=== PATIENT | male | born 1970 | race African-American/Black ===

== ENCOUNTER 2016-06-06 14:29 | Inpatient (IN) ==
[2016-06-06] MEDS ORDERED: NITROGLYCERIN 2% OINT 1 INCH/GM PACK TOP STA (15:23)
[2016-06-06] MEDS ORDERED: ALUM/MAG/SIMETH/LIDO VISC 1:1 30 ML BOTTLE PO STA (15:23)
[2016-06-06] MEDS ORDERED: ASPIRIN 325 MG TABLET PO STA (15:23)
[2016-06-06] MEDS ORDERED: ONDANSETRON 4 MG/2 ML VIAL IV STA (15:23)
[2016-06-06] MEDS ORDERED: MORPHINE 2 MG/1 ML SYRINGE IV STA (15:23)
[2016-06-06] MEDS ORDERED: hydrALAZINE 20 MG/1 ML VIAL IV STA (15:23)
--- NOTE | 2016-06-06 15:28 | EKG Report ---
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
[2016-06-06 15:31] LABS: Basophils % 0.2 % (0.0-0.8); Eosinophils % 0.2 % (0.00-10.9); Hematocrit 42.3 VOL% (42.0-52.0); Hemoglobin 14.7 GM/DL (14.0-18.0); Immature Granulocytes % 0.2 %; Immature Granulocytes Absolute 0.01 #; Lymphocytes # 0.4 10*3/uL (1.4-4.0); Lymphocytes % 6.4 % (21.2-54.2); Mean Corpuscular HGB Conc 34.8 GM/DL (32-36); Mean Corpuscular Hemoglobin 32 PG (27-34); Mean Corpuscular Volume 90.8 FL (87-102); Mean Platelet Volume 11.1 FL (9.6-12.0); Monocytes # 0.5 10*3/uL (0.11-0.8); Monocytes % 7.8 % (1.7-12.7); Neutrophils # 5.5 10*3/uL (1.4-7.4); Neutrophils % 85.2 % (38.7-73.9); Platelet Count 169 T/CUMM (130-400); Red Blood Count 4.66 MC/CUMM (3.8-5.5); Red Cell Distribution Width 12.9 % (9.3-17.3); White Blood Count 6.4 T/CUMM (4-12)
[2016-06-06] MEDS ORDERED: ONDANSETRON 4 MG/2 ML VIAL ONE (15:38)
[2016-06-06] MEDS ORDERED: NITROGLYCERIN 2% OINT 1 INCH/GM PACK TOP ONE (15:38)
[2016-06-06] MEDS ORDERED: hydrALAZINE 20 MG/1 ML VIAL ONE (15:38)
[2016-06-06 15:39] LABS: D-Dimer 0.9 MG/L FEU; PT Patient Result 10.4 SECS
[2016-06-06] MEDS ORDERED: MORPHINE 2 MG/1 ML SYRINGE ONE (15:39)
[2016-06-06] MEDS ORDERED: ALUM/MAG/SIMETH/LIDO VISC 1:1 30 ML BOTTLE PO ONE (15:39)
[2016-06-06] MEDS ORDERED: ASPIRIN 325 MG TABLET ONE (15:39)
[2016-06-06 15:42] LABS: Albumin 4.2 G/DL (3.4-5.0); Bilirubin,Total 0.6 MG/DL (0.2-1.0); Calcium 9.5 MG/DL (8.5-10.1); Magnesium 2.3 MG/DL (1.8-2.4); Osmolality,Calculated 272.8 MOS/KG (273-304); Total Protein 8.7 G/DL (6.4-8.3)
--- NOTE | 2016-06-06 15:47 | Emergency Department Note ---
Camilo Rosales Brittany, am scribing for, and in the presence of, Steve Strauss MD 15:41. Rica Rosales Charles R, MD, personally performed the services described in this documentation, ascribed by Radha Page in my presence, and it is both accurate and complete [id number] . Arrival - Arrival Chief Complaint: Chest Pain Stated Complaint: HIGH BP/CHEST PAIN ED Nursing Triage Note: Onset of right side CP, elevated BP, headache onset yesterday morning. Pt was seen in ED last night for same but refused being admitted for elevated BP. Mode of Arrival: Ambulatory Limitations: No Limitations Source: Patient Time Seen by Provider: 06/06/16 14:59 - History of Present Illness HPI Narrative: This is a 46 y/o black male,who presents to the ED with c/o URI Sx which started yesterday morning. He was seen here for the same Sx last night. He states he has been vomiting, coughing, and running a fever since yesterday morning. He also complains of CP and dyspnea. He denies a sore throat. Pt has no other complaints/pain in the ED at this time. Pt has a PMHx of HTN. Pt denies a surgical Hx. Pt denies a family medical Hx. Pt denies a social Hx. Onset (ago): day(s) (Started yesterday morning) Consistency: constant Severity: moderate Allergies/Adverse Reactions: Allergies Allergy/AdvReac Type Severity Reaction Status Date / Time No Known Allergies Allergy Unverified 06/05/16 21:24 Home Medications: Home Medications Medication Instructions Recorded Confirmed Type Lisinopril/Hctz 20-25 [Prinzide 1 tablet PO DAILY #30 tablet 05/03/16 06/06/16 Rx 20-25] Metoprolol Tartrate Tab [Lopressor 100 mg PO BID #60 tablet 05/03/16 06/06/16 Rx Tab] Aspirin EC Tab 81 mg PO DAILY 06/06/16 06/06/16 History Review of System - Review of System 12 point system: reviewed and no additional remarkable complaints except as stated - Review of System Constitutional: Present: fever (Low grade fever) Respiratory: Present: cough Cardiovascular: Present: chest pain, other (Dyspnea) Gastrointestinal: Present: vomiting Medical,Surgical,& Family Hx - Medical History Cardio: History of: Hypertension (Non-compliant with meds) - Social History Smoking Status: Unknown if ever smoked Frequency of Alcohol Use: None Type of Drug Use: None Exam Vital Signs: Vital Signs Temperature 100.1 F H 06/06/16 14:51 Pulse Rate 68 06/06/16 14:51 Respiratory Rate 19 06/06/16 14:51 Blood Pressure 183/115 06/06/16 14:51 O2 Sat by Pulse Oximetry 98 06/06/16 14:51 - General General appearance: alert, in no apparent distress - Head Head exam: Present: atraumatic, normocephalic, normal inspection - Eye Eye exam: Present: normal appearance, PERRL, EOMI - ENT ENT exam: Present: normal exam, normal oropharynx, mucous membranes moist - Neck Neck exam: Present: normal inspection, full ROM, trachea midline. Absent: tenderness, thyromegaly - Chest Chest inspection: Present: symmetric chest wall rise, tenderness (Chest wall tenderness). Absent: rash, abscess - Respiratory Respiratory exam: Present: rhonchi (Bilateral rhonchi) - Cardiovascular Cardiovascular exam: Present: regular rate, normal rhythm, normal heart sounds. Absent: murmur, rubs, gallop, clicks, JVD - Abdominal Exam Abdominal exam: Present: soft, normal bowel sounds. Absent: distention, tenderness, guarding, rebound, rigidity - Extremities Exam Extremities exam: Present: normal inspection, full ROM, normal capillary refill. Absent: tenderness, pedal edema, joint swelling, calf tenderness - Back Exam Back exam: Present: normal inspection, full ROM. Absent: tenderness, muscle spasm, rashes - Neurological Exam Neurological exam: Present: alert, oriented X3, CN II-XII intact, normal gait, reflexes normal. Absent: motor sensory deficit - Psychiatric Psychiatric exam: Present: normal affect, normal mood. Absent: depressed, agitated, anxious - Skin Skin exam: Present: warm, dry, intact, normal color. Absent: diaphoresis Course - Consultations Consultation #1: Hospitalist will admit patient Time: 16:14 Results - Labs CBC & BMP: 06/06/16 15:03 06/06/16 15:03 Lab Results: I have reviewed the patients labs - Diagnostic Findings Procedure: Chest x-ray: report reviewed by me (1. The cardiac silhouette is borderlien enlarged. This could be related to the portable technique, and correlation with a chest PA lateral study would be helpful. 2. The interstital markings are slighly prominent at both lower lung zones. This is likely related to the poor inspiratory depth. ) Critical Care Time Critical Care Time: Yes Total Critical Care Time: 60 Disposition Clinical Impression: Atypical chest pain, Chest pain, Malignant hypertensive urgency, Medical non- compliance, Fever Case discussed with: patient, patient's family Disposition: Still a Patient Condition: Guarded Time of Disposition: 16:16
--- NOTE | 2016-06-06 15:59 | XRay Report ---
Referring Physician: Steve Strauss Exam: XR chest 1V portable Date: June 06, 2016 at 3:33 AM Reason: Chest pain Comparison: Chest one view portable June 05, 2016 Findings: The cardiac silhouette is borderline enlarged. The interstitial markings are slightly prominent at both lower lung zones. This is likely related to the poor inspiratory depth and portable technique. No pneumothorax or pleural effusion is identified. No acute osseous process is seen. Impression: 1. The cardiac silhouette is borderline enlarged. This could be related to the portable technique, and correlation with a chest PA lateral study would be helpful. 2. The interstitial markings are slightly prominent at both lower lung zones. This is likely related to the poor inspiratory depth. PROCEDURE INTERPRETED AT [facility] DEPARTMENT OF RADIOLOGY Final Report Signed by: Dr. Shea Rogers
[2016-06-06] MEDS ORDERED: ONDANSETRON 4 MG/2 ML VIAL IV PRN (16:19)
[2016-06-06] MEDS ORDERED: DOCUSATE SODIUM 100 MG CAPSULE PO PRN (16:19)
[2016-06-06] MEDS ORDERED: MORPHINE 2 MG/1 ML SYRINGE IV PRN (16:19)
[2016-06-06] MEDS ORDERED: PENICILLIN G BENZATHINE 1,200,000 UNIT/2 ML SYRINGE IM STA (16:52)
[2016-06-06] MEDS ORDERED: PENICILLIN G BENZATHINE 1,200,000 UNIT/2 ML SYRINGE IM ONE (16:57)
--- NOTE | 2016-06-06 17:55 | Hospitalist History & Physical ---
Assessment and Plan (1) Chest pain Status: Acute Assessment and plan: will r/o ACS,pleuritis,upper resp infection,bronchitis,musculoskeletal origin Plan -telemetry -asa, bblockers, lovenox, will hold ACEI due to RI, -serial cardiac enzymes, lipids, TSH, UDS -tylenol, PPIs -consider stress test in am, will get Echo Current Visit: Yes (2) Strep throat Status: Acute Assessment and plan: Rapid test was positive for GAS. patient received a dose of IM penicillin in the ER -start amoxicillin -Blood cultures Current Visit: Yes (3) HTN (hypertension) Status: Acute Assessment and plan: will treat and monitor closely Current Visit: Yes (4) Acute renal insufficiency Status: Acute Assessment and plan: will hydrate, repeat bmp in am Current Visit: Yes History of Present Illness Chief complaint: chest pain History of present illness: Mr. Julian is a 46 year old male with a history of HTN, whose grandmom had an [place] at the age of 59 presents to the ER with a history of chestpain. Patient was well until yesterday when he was about going to work, when he developed a chest pain. Pain is located in the sternal region, sharp in nature, has been on and off, aggravated by coughing, relieved by staying still. He states an associated nausea, vomiting but denies hemetemeis, melena stools. Pain was non radiating, with no associated palpitations, diaphoresis. He came to the ER yesterday and subsequently left AMA. He returned today due to persistent of symptoms. He denies a history of sore throat but he has had some fever. Upon arrival to the ER, rapid test was positive for GAS, Influenza tests were negative.CXR showed enlarged heart with interstitial markings slightly prominent at both lower lung zones.Labs showed mildly elevated creatinine of 1.4.D dimer was negative, cardiac enzyme was negative. He denies nasal congestion, cold, ear ache or drainage. Home Medications Medication Instructions Recorded Confirmed Type Lisinopril/Hctz 20-25 [Prinzide 1 tablet PO DAILY #30 tablet 05/03/16 06/06/16 Rx 20-25] Metoprolol Tartrate Tab [Lopressor 100 mg PO BID #60 tablet 05/03/16 06/06/16 Rx Tab] Aspirin EC Tab 81 mg PO DAILY 06/06/16 06/06/16 History Allergies Allergy/AdvReac Type Severity Reaction Status Date / Time No Known Allergies Allergy Unverified 06/05/16 21:24 Medical,Surgical,& Family Hx - Medical History Cardio: History of: Hypertension (Non-compliant with meds) - Social History Smoking Status: Unknown if ever smoked Frequency of Alcohol Use: None Type of Drug Use: None Exam - Constitutional Vitals: Period Temp Pulse Resp BP Sys/[place] Pulse Ox Last 24 Hr 68-94 16-24 135-163/85-102 98-99 General appearance: no acute distress - Head Head exam: Present: normal inspection - Eye Eye exam: Present: EOMI - Neck Neck exam: Present: normal inspection - Respiratory Respiratory exam: Present: clear to auscultation bilaterally - Cardiovascular Cardiovascular exam: Present: regular rate and rhythm - GI/Abdominal GI/Abdominal exam: Present: normal bowel sounds - Extremities Exam Extremities exam: Present: normal inspection Results - Labs CBC & BMP: 06/06/16 15:03 06/06/16 15:03 Lab Results: I have reviewed the past 24 hour labs
[2016-06-06] MEDS: ACETAMINOPHEN 325 MG TABLET PO PRN (18:18)
[2016-06-06] MEDS: ENOXAPARIN 40 MG/0.4 ML SYRINGE SUBCUT SCH (18:32)
[2016-06-06] MEDS: SODIUM CHLORIDE 0.45% 1,000 ML IV SCH (18:32)
--- NOTE | 2016-06-06 18:42 | EKG Report ---
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
[2016-06-06 20:18] LABS: Troponin I Only < 0.015 NG/ML (0.00-0.045)
[2016-06-06] MEDS: AMOXICILLIN 500 MG CAPSULE PO SCH (20:53)
[2016-06-06] MEDS: ZALEPLON 5 MG CAPSULE PO PRN (20:53)
[2016-06-06] MEDS ORDERED: METOPROLOL TARTRATE 100 MG TABLET PO SCH (21:00)
--- NOTE | 2016-06-06 22:12 | EKG Report ---
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
[2016-06-07 03:22] LABS: Barbiturates Screen,Urine Negative (Negative); Benzodiazepines Screen,Urine Negative (Negative); Cannabinoid Screen,Urine Negative (Negative); Opiate Screen,Urine Positive (Negative); Phencyclidine Screen,Urine Negative (Negative)
[2016-06-07] MEDS: ACETAMINOPHEN 325 MG TABLET PO PRN ×2 (03:36→20:40)
[2016-06-07 04:53] LABS: Basophils % 0.1 % (0.0-0.8); Hematocrit 37.6 VOL% (42.0-52.0); Hemoglobin 12.7 GM/DL (14.0-18.0); Immature Granulocytes % 0.4 %; Immature Granulocytes Absolute 0.03 #; Lymphocytes # 0.7 10*3/uL (1.4-4.0); Lymphocytes % 8.6 % (21.2-54.2); Mean Corpuscular HGB Conc 33.8 GM/DL (32-36); Mean Corpuscular Hemoglobin 31 PG (27-34); Mean Platelet Volume 10.3 FL (9.6-12.0); Monocytes # 0.6 10*3/uL (0.11-0.8); Monocytes % 7.6 % (1.7-12.7); Neutrophils # 6.3 10*3/uL (1.4-7.4); Neutrophils % 83.3 % (38.7-73.9); Platelet Count 166 T/CUMM (130-400); Red Blood Count 4.13 MC/CUMM (3.8-5.5); White Blood Count 7.5 T/CUMM (4-12)
[2016-06-07 05:22] LABS: Troponin I Only < 0.015 NG/ML (0.00-0.045)
[2016-06-07 05:33] LABS: Albumin 3.7 G/DL (3.4-5.0); Bilirubin,Total 0.6 MG/DL (0.2-1.0); Calcium 8.6 MG/DL (8.5-10.1); Magnesium 2.1 MG/DL (1.8-2.4); Osmolality,Calculated 275.7 MOS/KG (273-304); Potassium 3.6 MMOL/L (3.5-5.1); Risk Ratio 2.94; Thyroid Stimulating Hormone 0.077 uIU/ml (0.358-3.74); Total Protein 7.4 G/DL (6.4-8.3); VLDL CHOLESTEROL 21.6 MG/DL
[2016-06-07] MEDS: SODIUM CHLORIDE 0.45% 1,000 ML IV SCH ×2 (07:50→22:42)
[2016-06-07] MEDS ORDERED: LISINOPRIL/HCTZ 20-25 MG TABLET PO SCH (09:00)
[2016-06-07] MEDS: ASPIRIN EC 81 MG TABLET PO SCH (09:02)
[2016-06-07] MEDS: AMOXICILLIN 500 MG CAPSULE PO SCH ×2 (09:03→20:40)
[2016-06-07] MEDS: PANTOPRAZOLE 40 MG TABLET PO SCH (09:03)
--- NOTE | 2016-06-07 09:54 | CT Report ---
CT brain Indication: Headache, fever Comparison: 05 June 2016 Technique: Axial CT imaging of the brain is performed without contrast with 3 mm increments. Findings: No evidence of hemorrhage, mass mass effect midline shift or acute infarct seen. The brain parenchyma attenuation and differentiation appears within normal limits. The ventricles and cisterns are normal in caliber. No cranial or skull base abnormality is identified. Impression: No evidence of abnormality demonstrated. PROCEDURE INTERPRETED AT [facility] DEPARTMENT OF RADIOLOGY Final Report Signed by: Dr. Edwin Hollis
--- NOTE | 2016-06-07 09:57 | CT Report ---
CT cervical spine Indication: Cervicalgia, fever Comparison: None available Technique: Axial CT imaging of the cervical spine is performed without contrast. Computer reformatting is viewed in the sagittal and coronal planes. Findings: No fracture is seen. Alignment of the cervical spine is within normal limits. Vertebral body heights are normal. No other abnormality is demonstrated. Impression: No evidence of abnormality demonstrated PROCEDURE INTERPRETED AT [facility] DEPARTMENT OF RADIOLOGY Final Report Signed by: Dr. Edwin Hollis
--- NOTE | 2016-06-07 10:45 | Cardiology Consult Note ---
Ambrosio Rosales Rachel, RN, am scribing for, and in the presence of, Byron Paul MD 10:44. Assessment and Plan (1) Atypical chest pain Status: Acute Current Visit: Yes (2) Fever Status: Acute Current Visit: Yes (3) HTN (hypertension) Status: Chronic Current Visit: Yes (4) Medical non-compliance Status: Chronic Current Visit: Yes (5) Strep pharyngitis Status: Acute Current Visit: Yes (6) 2Nd degree AV block Status: Acute Current Visit: Yes (7) Headache Status: Acute Current Visit: Yes History of Present Illness - Data of Consult Patient: new to practice Consult date: 06/07/16 Requesting Physician: Marlena Bynum - Consult Narrative Reason for consult: chest pain History of present illness: Cardiology note: Mr. 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 He has risk factors significant for hypertension and family history (grandmother for [place] at age 59). He reports that he has never smoked in his lifetime. No significant surgical history noted. Past medical history of hypertension, he reports that he does not have a PCP. He reports that he goes to the ER to get refills on his BP medications. He was in his usual state of health until a week ago when he began experiencing symptoms of an URI. He reports cough, fever, chills, fatigue for one week. Friday, after work, his mother reports that he came to her house and he just did not look well. She took his blood pressure and it was high, SBP around 210. She then brought him to the ER. He was seen and advised to be admitted at that time. However, he refused to be admitted and went home. he reports having a terrible headache that radiated down his neck. His BP also remained high, SBP above 200. At that time he returned to the ER for futher work up. In the ER he had a low grade fever and was noted to have strep throat. Patient also complained of chest pain while in the ER, Cardiology has now been consulted for further work up of this. Patient reports that his chest pain does not radiate and only occurs when coughing. This pain is not associated with shortness of breath and it not worsened with activity. Upon exam, his chest pain is reproducible which is consistent with musculosketal pain. He denies shortness of breath, nausea, vomiting, edema, orthopnea, PND, MONTES, palpitations. He does however report being lightheaded when he coughs. His troponins have been negative times four. EKG does not reveal anything acute. Will continue to monitor these. Currently patient is chest pain free. Patient continues to complain of excruciating headache that radiates down his neck. His BP this morning 188/99, will adjust medications for better control. Nursing staff reports that overnight patient have two episodes of bradycardia. Patient's heart rate was noted to be in the 30's. Nursing staff reports that patient was asymptomatic during these episodes. This morning he is in sinus rhythm with heart rates in the 70-80's. After reviewing rhythm strips from last night it appears to be a 2nd degree heart block. Today's labs- Troponin - negative times 4, total CK - 487, H&H 12.7 & 37.6, WBC - 7.5, Na - 138, Potassium - 3.6, , Mag - 2.1, Chloride - 97, Creatinine - 1.3, BUN - 16, TSH - 0.77, BNP - 59, EKG - ST-T changes noted. Does not reveal anything acute. Will continue to monitor these. Impression: Atypical chest pain Hypertension Headache Low TSH- Will order free T4 Noncompliance with medications Strep Throat 2nd Degree heart block Cardiology addendum. Patient examined and chart reviewed and discussed with nurse Wesley. Chronic hypertension with noncompliance with medication. Being treated with ampicillin and penicillin for strep pharyngitis. Pleuritic chest pain. No history of exertional angina. No history of syncope. This patient is sexually active. He will be noncompliant with metoprolol. Plan Antibiotics as ordered Echo Doppler Increase lisinopril HCT 40/12.5 Clonidine 0.2 mg twice daily CC: Lila Preston MD - Home Medications and Allergies Home Medications: Home Medications Medication Instructions Recorded Confirmed Type Lisinopril/Hctz 20-25 [Prinzide 1 tablet PO DAILY #30 tablet 05/03/16 06/06/16 Rx 20-25] Metoprolol Tartrate Tab [Lopressor 100 mg PO BID #60 tablet 05/03/16 06/06/16 Rx Tab] Aspirin EC Tab 81 mg PO DAILY 06/06/16 06/06/16 History Allergies/Adverse Reactions: Allergies Allergy/AdvReac Type Severity Reaction Status Date / Time No Known Allergies Allergy Unverified 06/05/16 21:24 - Constitutional Constitutional: Present: chills, fatigue, fever(s), headache(s), malaise, night sweats - EENT Eyes: Absent: blurry vision, diplopia, loss of vision, requires corrective lense Ears: Absent: decreased hearing, ear discharge, ear pain, tinnitus Nose, mouth and throat: Present: headache(s), nasal congestion, neck pain, sinus pressure, sore throat - Cardiovascular Cardiovascular: Present: as per HPI, lightheadedness. Absent: claudication, diaphoresis, dyspnea, dyspnea on exertion, edema, radiating jaw, neck or arm pain, orthopnea, palpitations, PND - Respiratory Respiratory: Present: cough. Absent: dyspnea, hemoptysis, dyspnea on exertion, wheezing, snoring, pain on inspiration - Gastrointestinal Gastrointestinal: Absent: abdominal pain, change in bowel habits, coffee ground emesis, constipation, cramping, diarrhea, dyspepsia, dysphagia, heartburn, hematemesis, hematochezia, loose stools, melena, nausea, odynophagia, vomiting - Musculoskeletal Musculoskeletal: Absent: muscle weakness, myalgias - Neurological Neurological: Present: headache(s). Absent: abnormal speech, behavioral changes , dizziness, focal weakness, numbness, paresthesias, syncope, tremor(s) - Hematologic/Lymphatic Hematologic/Lymphatic: Absent: easy bleeding, easy bruising, lymphadenopathy Medical,Surgical,& Family Hx - Medical History Cardio: History of: Hypertension (Non-compliant with meds) - Family History Family History: Reports;: Family Heart Disease (grandmother) - Social History Smoking Status: Never smoker Frequency of Alcohol Use: None Type of Drug Use: None Physical Examination Vital Signs Temp Pulse Resp BP Pulse Ox 100.1 F H 84 22 167/115 98 06/06/16 14:35 06/06/16 14:35 06/06/16 14:35 06/06/16 14:35 06/06/16 14:35 General: Present: Appears Well, No Apparent Distress HEENT: Present: PERRL, Normocephaly, Sinus Tenderness. Absent: Jaundice, Pallor Neck: Present: Supple Neck, Midline Trachea, No JVD/HJR, No Masses, No Bruit, No Thyromegaly. Absent: Bruit Cardiac: Present: Reg Rate and Rhythm, Regular Rate, Regular Rhythm, S1/S2, No Murmur. Absent: Gallop Lungs: Present: Normal Exam, Clear Ascult./Percussion, Normal Breath Sounds, No Wheeze, Rales, Rhonchi. Absent: Oxygen Abdomen: Present: Soft, Active Bowel Sounds, No Masses, No Pulsations/Bruits. Absent: Ascites, Tender, Firm, Distended Skin: Present: Clear. Absent: Rash, Suspicious Lesions, Ulceration Gait: Present: Normal Gait Extremities: Present: Normal Gait, No Clubbing, No Cyanosis, No Edema, Normal Upper Extr. Pulses, Normal Lower Extr. Pulses Result/EKG - Labs CBC & BMP: 06/07/16 04:24 06/07/16 04:24 Lab Results: I have reviewed the past 24 hour labs Labs: Laboratory Results - last 24 hr 06/06/16 06/06/16 06/07/16 19:04 21:45 00:00 WBC RBC Hgb Hct MCV MCH MCHC RDW Plt Count MPV Neut % (Auto) Lymph % (Auto) [place] % (Auto) Eos % (Auto) Baso % (Auto) Neut # (Auto) Lymph # (Auto) [place] # (Auto) Eos # (Auto) Baso # (Auto) Immature Gran % Nucleated RBC % Immature Gran # Nucleated RBCs # Sodium Potassium Chloride Carbon Dioxide Anion Gap BUN Creatinine GFR Calculation BUN/Creatinine Ratio Glucose Calculated Osmolality Calcium Magnesium Total Bilirubin AST ALT Alkaline Phosphatase Total Creatine Kinase 533 H CK-MB (CK-2) < 1.0 Troponin I < 0.015 < 0.015 B-Natriuretic Peptide Total Protein Albumin Globulin Albumin/Globulin Ratio Triglycerides Cholesterol LDL Cholesterol VLDL Cholesterol HDL Cholesterol Heart Disease Risk Ratio TSH 3rd Generation Urine Opiates Screen Positive H Ur Barbiturates Screen Negative Ur Phencyclidine Scrn Negative U Amphetamine/Methamph Negative U Benzodiazepines Scrn Negative U Cocaine Metab Screen Negative U Cannabinoids Screen Negative 06/07/16 06/07/16 06/07/16 04:24 04:24 04:24 WBC 7.5 RBC 4.13 Hgb 12.7 L D Hct 37.6 L MCV 91.0 MCH 31 MCHC 33.8 RDW 13.0 Plt Count 166 MPV 10.3 Neut % (Auto) 83.3 H Lymph % (Auto) 8.6 L [place] % (Auto) 7.6 Eos % (Auto) 0.0 Baso % (Auto) 0.1 Neut # (Auto) 6.3 Lymph # (Auto) 0.7 L [place] # (Auto) 0.6 Eos # (Auto) 0.0 Baso # (Auto) 0.0 Immature Gran % 0.4 Nucleated RBC % 0.0 Immature Gran # 0.03 Nucleated RBCs # 0.00 Sodium 138 Potassium 3.6 Chloride 97 L Carbon Dioxide 29 Anion Gap 15.6 H BUN 16 Creatinine 1.30 GFR Calculation 75 BUN/Creatinine Ratio 12.00 Glucose 104 Calculated Osmolality 275.7 Calcium 8.6 Magnesium 2.1 Total Bilirubin 0.60 AST 20 ALT 18 Alkaline Phosphatase 58 Total Creatine Kinase CK-MB (CK-2) Troponin I B-Natriuretic Peptide 59 Total Protein 7.4 Albumin 3.7 Globulin 3.7 H Albumin/Globulin Ratio 1.0 L Triglycerides 108 Cholesterol 206 H LDL Cholesterol 115.0 VLDL Cholesterol 21.6 HDL Cholesterol 70 H Heart Disease Risk Ratio 2.94 TSH 3rd Generation 0.077 L Urine Opiates Screen Ur Barbiturates Screen Ur Phencyclidine Scrn U Amphetamine/Methamph U Benzodiazepines Scrn U Cocaine Metab Screen U Cannabinoids Screen 06/07/16 04:24 WBC RBC Hgb Hct MCV MCH MCHC RDW Plt Count MPV Neut % (Auto) Lymph % (Auto) [place] % (Auto) Eos % (Auto) Baso % (Auto) Neut # (Auto) Lymph # (Auto) [place] # (Auto) Eos # (Auto) Baso # (Auto) Immature Gran % Nucleated RBC % Immature Gran # Nucleated RBCs # Sodium Potassium Chloride Carbon Dioxide Anion Gap BUN Creatinine GFR Calculation BUN/Creatinine Ratio Glucose Calculated Osmolality Calcium Magnesium Total Bilirubin AST ALT Alkaline Phosphatase Total Creatine Kinase 487 H CK-MB (CK-2) < 1.0 Troponin I < 0.015 B-Natriuretic Peptide Total Protein Albumin Globulin Albumin/Globulin Ratio Triglycerides Cholesterol LDL Cholesterol VLDL Cholesterol HDL Cholesterol Heart Disease Risk Ratio TSH 3rd Generation Urine Opiates Screen Ur Barbiturates Screen Ur Phencyclidine Scrn U Amphetamine/Methamph U Benzodiazepines Scrn U Cocaine Metab Screen U Cannabinoids Screen - EKG EKG results: sinus rhythm I, Byron Paul MD, personally performed the services described in this documentation, ascribed by Maryjane Valente RN in my presence, and it is both accurate and complete .
--- NOTE | 2016-06-07 12:43 | Hospitalist Progress Note ---
Assessment and Plan (1) Chest pain Status: Acute Assessment and plan: cardiac enzymes are negative, Cardiology has seen, follow recommendations. Current Visit: Yes (2) Strep throat Status: Acute Assessment and plan: Rapid test was positive for GAS. patient received a dose of IM penicillin in the ER -continue with amoxicillin -follow Blood cultures Current Visit: Yes (3) HTN (hypertension) Status: Chronic Assessment and plan: meds have been adjusted by Cardiology, follow response Current Visit: Yes (4) Acute renal insufficiency Status: Acute Assessment and plan: improved with hydration, repeat bmp in am Current Visit: Yes (5) Headache Status: Acute Assessment and plan: with neck pain, no neck stiffness -MRI of head and neck -CSF analysis -pain meds Current Visit: Yes Hospitalist: Subjective Interval history: Patient seen today complaining of a headache and a neck pain.He also had two episodes of bradycardia overnight and cardiology has adjusted his meds. Exam - Constitutional Vitals: Period Temp Pulse Resp BP Sys/[place] Pulse Ox Last 24 Hr 98.1 F-100.9 F 56-94 16-28 135-188/81-108 91-100 General appearance: no acute distress - Head Head exam: Present: normal inspection - Respiratory Respiratory exam: Present: clear to auscultation bilaterally - Cardiovascular Cardiovascular exam: Present: regular rate and rhythm - GI/Abdominal GI/Abdominal exam: Present: normal bowel sounds - Extremities Exam Extremities exam: Present: normal inspection Results - Labs CBC & BMP: 06/07/16 04:24 06/07/16 04:24 Lab Results: I have reviewed the past 24 hour labs
--- NOTE | 2016-06-07 14:51 | Magnetic Resonance Report ---
MRI brain without and with contrast Indication: Severe headache Comparison: None available Technique: Axial sagittal and coronal imaging of the brain is performed without and with intravenous contrast. T1, T2, FLAIR and diffusion weighted sequences are performed. Contrast dose is 13 cc Dotarem. Findings: No evidence of restricted diffusion seen. No evidence of intracranial hemorrhage, mass, mass effect or midline shift is seen. There are areas of the T2 signal hyperintensity mostly within the periventricular white matter and near the superior basal ganglia in both cerebral hemispheres. Remaining brain parenchyma has normal signal and differentiation. The ventricles and cisterns are appropriate in caliber. Posterior fossa, mid brain and pituitary gland appear within normal limits. No evidence of cranial or skull base abnormality seen. No areas of abnormal enhancement are present on the postcontrast images when compared to the precontrast study Impression: Areas of white matter T2 signal hyperintensity in both cerebral hemispheres mostly in the periventricular areas and also near the superior basal ganglia bilaterally. PROCEDURE INTERPRETED AT [facility] DEPARTMENT OF RADIOLOGY Final Report Signed by: Dr. Edwin Hollis
--- NOTE | 2016-06-07 14:53 | Magnetic Resonance Report ---
Cervical Spine MRI Indication: Cervicalgia, fever Technique: Axial and sagittal imaging of the spine is performed using T1, T2 and T2 fat sat sequences without and with intravenous contrast. Contrast dose was 13 cc Dotarem. Comparison: None available Findings: Vertebral bodies normal in height and alignment. Disc space heights are well-maintained. No evidence of disc herniation is seen. C5-C6: There are small amount of uncovertebral joint hypertrophy with mild to moderate bilateral foraminal stenosis. Spinal cord signal appears within normal limits. Impression: Mild spondylitic change. No other evidence of abnormality demonstrated. PROCEDURE INTERPRETED AT [facility] DEPARTMENT OF RADIOLOGY Final Report Signed by: Dr. Edwin Hollis
--- NOTE | 2016-06-07 16:10 | Post Interventional Procedure ---
Pre-op diagnosis: PAUL, HTN urgency Post-op diagnosis: same Procedure: LP w/ fluoro Contrast: 0.2 min Radiologist: Roger Cherry Anesthesia: local Specimens: other (8 cc CSF, first tube bloody, cleared tubes 2-4) Estimated blood loss: none Complications: none Condition: stable Description/Findings: OP 18 cm-water Bloody tap cleared for tubes 2-4
[2016-06-07 17:29] LABS: Appearance,CSF Clear; Red Blood Cell,CSF 48 C/CUMM; White Blood Cell,CSF 2 C/CUMM
--- NOTE | 2016-06-07 17:33 | Interventional Radiology Rpt ---
IR lumbar puncture diagnostic Indication: Fever. Lumbar puncture with fluoroscopy Description: Formal timeout was performed. Maximum sterile barrier technique used. The patient was placed prone on the fluoroscopy table. The low back was prepped and draped in a sterile fashion. A midline lumbar puncture was then performed at the L3-4 interspace using a 22-gauge spinal needle. Fluoroscopic guidance was used and a captured image documents the needle position. An opening pressure of 18 cm water was obtained. Initial 2 cc test tube was slightly blood-tinged. The remaining 6 cc is clear. A total of 8 cc clear, colorless CSF was withdrawn and sent to laboratory. Needle was removed and a bandage placed the puncture site. Fluoroscopy time: 0.2 minutes. Impression: Lumbar puncture as described. PROCEDURE INTERPRETED AT [facility] DEPARTMENT OF RADIOLOGY Final Report Signed by: Roger Cherry M.D.
[2016-06-07] MEDS: ENOXAPARIN 40 MG/0.4 ML SYRINGE SUBCUT SCH (18:09)
[2016-06-07 18:17] LABS: Lymphocytes,CSF 90 %; Monocytes,CSF 10 %
[2016-06-07] MEDS: LISINOPRIL/HCTZ 20-25 MG TABLET PO SCH (20:40)
[2016-06-07] MEDS: ZALEPLON 5 MG CAPSULE PO PRN (20:40)
[2016-06-08] MEDS: ASPIRIN EC 81 MG TABLET PO SCH (08:55)
[2016-06-08] MEDS: AMOXICILLIN 500 MG CAPSULE PO SCH ×2 (08:55→21:14)
[2016-06-08] MEDS: PANTOPRAZOLE 40 MG TABLET PO SCH (08:56)
[2016-06-08] MEDS: LISINOPRIL/HCTZ 20-25 MG TABLET PO SCH ×2 (08:56→21:14)
[2016-06-08] MEDS: SODIUM CHLORIDE 0.45% 1,000 ML IV SCH (11:14)
--- NOTE | 2016-06-08 14:03 | Hospitalist Progress Note ---
Assessment and Plan (1) Chest pain Status: Acute Assessment and plan: cardiac enzymes are negative, Cardiology has seen, follow recommendations. Current Visit: Yes (2) Strep throat Status: Acute Assessment and plan: Rapid test was positive for GAS. patient received a dose of IM penicillin in the ER -continue with amoxicillin Blood cultures- negative Current Visit: Yes (3) HTN (hypertension) Status: Chronic Assessment and plan: Blood pressure bottomed down, patient has a history of poor compliance to meds, will suggest dcing clonidine inorder to avoid rebound hypertension due to this poor habit -will dc IVF -continue with Lisinopril /HCTz, follow response Current Visit: Yes (4) Acute renal insufficiency Status: Acute Assessment and plan: improved with hydration, repeat bmp in am Current Visit: Yes (5) Headache Status: Acute Assessment and plan: with neck pain, no neck stiffness- improved -MRI of brain showed areas of white matter T2 signal hyperintensity in both cerebral hemispheres mostly in the periventricular areas and also near the superior basal ganglia bilaterally.MRI cervical spine showed mild spondylitic change. -CSF analysis showed colorless and clear fluid with negative cultures -continue pain meds Current Visit: Yes Hospitalist: Subjective Interval history: Patient seen.He states his headache and neck pain have improved. MRI of brain showed areas of white matter T2 signal hyperintensity in both cerebral hemispheres mostly in the periventricular areas and also near the superior basal ganglia bilaterally.MRI cervical spine showed mild spondylitic change. Exam - Constitutional Vitals: Period Temp Pulse Resp BP Sys/[place] Pulse Ox Last 24 Hr 97.6 F-9906 F 55-69 16-20 101-139/65-100 96-98 General appearance: no acute distress - Head Head exam: Present: normal inspection - Respiratory Respiratory exam: Present: clear to auscultation bilaterally - Cardiovascular Cardiovascular exam: Present: regular rate and rhythm - GI/Abdominal GI/Abdominal exam: Present: normal bowel sounds - Extremities Exam Extremities exam: Present: normal inspection Results - Labs CBC & BMP: 06/07/16 04:24 06/07/16 04:24 Lab Results: I have reviewed the past 24 hour labs
--- NOTE | 2016-06-08 15:11 | Cardiology Progress Note ---
Assessment and Plan (1) Atypical chest pain Status: Acute Current Visit: Yes (2) Fever Status: Acute Current Visit: Yes (3) HTN (hypertension) Status: Chronic Current Visit: Yes (4) Medical non-compliance Status: Chronic Current Visit: Yes (5) Strep pharyngitis Status: Acute Current Visit: Yes (6) 2Nd degree AV block Status: Acute Current Visit: Yes (7) Headache Status: Acute Current Visit: Yes Cardiology - PN: Subj Interval history: Cardiology note Blood pressure 116/76 in the right arm by me Telemetry shows steady sinus rhythm Headache resolved Throat still little sore Clear lungs Regular rhythm no gallop Abdomen soft benign Echo showed ejection fraction of 55% structurally normal valves normal RV function mild TR no effusion Impression Hypertensive urgency Noncompliance with medications Strep pharyngitis Headache status post LP Plan Antibiotics BP meds Probable home tomorrow Exam (Progress Note) - Constitutional Vitals: Period Temp Pulse Resp BP Sys/[place] Pulse Ox Last 24 Hr 97.6 F-9906 F 55-69 16-20 101-139/65-100 96-98 Result/EKG - Labs CBC & BMP: 06/07/16 04:24 06/07/16 04:24 Labs: Laboratory Results - last 24 hr 06/07/16 06/07/16 06/07/16 13:46 13:46 13:46 CSF Appearance Clear CSF Color Colorless CSF WBC 2 CSF RBC 48 CSF Diff Total Count 10 CSF Lymphocytes 90 CSF Monocytes 10 CSF Glucose 64 CSF Lactate 1.6 CSF Total Protein 06/07/16 13:46 CSF Appearance CSF Color CSF WBC CSF RBC CSF Diff Total Count CSF Lymphocytes CSF Monocytes CSF Glucose CSF Lactate CSF Total Protein 40
--- NOTE | 2016-06-08 16:30 | ECHO Report ---
Royce Julian Exam Date: 06/07/2016 15:34 Referring Physician: Technologist: Celine Jackson RDCS Age: 46 Ht (in): Wt (lb): Gender: M Exam Location: [facility] Echo Indications: Chest pain, unspecified, Essential (primary) hypertension, Headache, Fever, 2nd degree AV block BP: / HR: Rhythm: Sinus Technical Quality: Fair IMPRESSIONS EF60 %. Grade I/IV diastolic dysfunction (abnormal relaxation filling pattern), normal to mildly elevated filling pressures. The right ventricle is normal in size and function. Normal right atrial size. Mild atrial enlargement in apical view (elongated LA). Morphologically normal mitral valve. No mitral valve regurgitation. Trileaflet aortic valve. No aortic valve regurgitation. Mild tricuspid valve regurgitation. [id number]. Pulmonic valve not well visualized. Normal pericardium without effusion. Normal ascending aorta dimension. MEASUREMENTS (Male / Female) Normal Values 2D ECHO LV Diastolic Diameter PLAX 4.3 cm 4.2 - 5.9 / 3.9 - 5.3 cm LV Systolic Diameter PLAX 3.2 cm LV Fractional Shortening PLAX 26.4 % IVS Diastolic Thickness 1.1 cm 0.6 - 1.0 / 0.6 - 0.9 cm LVPW Diastolic Thickness 1.1 cm 0.6 - 1.0 / 0.6 - 0.9 cm RV Internal Dim ED PLAX 2.9 cm Aortic Root Diameter 3.9 cm LA Systolic Diameter LX 2.3 cm 3.0 - 4.0 / 2.7 - 3.8 cm FINDINGS Left Ventricle EF60 %. Grade I/IV diastolic dysfunction (abnormal relaxation filling pattern), normal to mildly elevated filling pressures. Right Ventricle The right ventricle is normal in size and function. Right Atrium Normal right atrial size. Left Atrium Mild atrial enlargement in apical view (elongated LA). Mitral Valve Morphologically normal mitral valve. No mitral valve regurgitation. Aortic Valve Trileaflet aortic valve. No aortic valve regurgitation. Tricuspid Valve Morphologically normal tricuspid valve. Mild tricuspid valve regurgitation. [id number]. Pulmonic Valve Pulmonic valve not well visualized. Pericardium Normal pericardium without effusion. Aorta Normal ascending aorta dimension. Charli Beverly (Electronically Signed) Final Date: 07 June 2016 16:47
[2016-06-08] MEDS: ENOXAPARIN 40 MG/0.4 ML SYRINGE SUBCUT SCH (17:35)
[2016-06-08] MEDS: ZALEPLON 5 MG CAPSULE PO PRN (21:14)
[2016-06-09 05:17] LABS: Basophils % 0.2 % (0.0-0.8); Hematocrit 40.2 VOL% (42.0-52.0); Immature Granulocytes % 0.2 %; Immature Granulocytes Absolute 0.01 #; Lymphocytes # 1.2 10*3/uL (1.4-4.0); Lymphocytes % 29.6 % (21.2-54.2); Mean Corpuscular HGB Conc 34.8 GM/DL (32-36); Mean Corpuscular Hemoglobin 31 PG (27-34); Mean Corpuscular Volume 89.3 FL (87-102); Mean Platelet Volume 10.2 FL (9.6-12.0); Monocytes # 0.4 10*3/uL (0.11-0.8); Monocytes % 10.1 % (1.7-12.7); Neutrophils # 2.5 10*3/uL (1.4-7.4); Neutrophils % 59.9 % (38.7-73.9); Platelet Count 159 T/CUMM (130-400); Red Cell Distribution Width 12.7 % (9.3-17.3); White Blood Count 4.2 T/CUMM (4-12)
[2016-06-09 05:51] LABS: Calcium 8.7 MG/DL (8.5-10.1); Osmolality,Calculated 276.7 MOS/KG (273-304); Potassium 3.6 MMOL/L (3.5-5.1)
[2016-06-09 07:42] VITALS: BP 101/66
[2016-06-09] MEDS: PANTOPRAZOLE 40 MG TABLET PO SCH (08:27)
[2016-06-09] MEDS: LISINOPRIL/HCTZ 20-25 MG TABLET PO SCH (08:27)
[2016-06-09] MEDS: AMOXICILLIN 500 MG CAPSULE PO SCH (08:27)
[2016-06-09] MEDS: ASPIRIN EC 81 MG TABLET PO SCH (08:27)
--- NOTE | 2016-06-09 09:05 | Discharge Summary ---
Hospital Course - Hospital Course Hospital Course: Mr. Julian is a 46 year old male with a history of HTN,non compliance to meds, whose grandmom had an NE at the age of 59 presents to the ER with a history of chestpain. . He came to the ER previously and left AMA Upon arrival to the ER,his bp was high, went as high as 183/115 , noted to have a fever of 100.5.Rapid test was positive for GAS, Influenza tests were negative.CXR showed enlarged heart with interstitial markings slightly prominent at both lower lung zones.Labs showed mildly elevated creatinine of 1.4.D dimer was negative, cardiac enzyme was negative.He was admitted to telemetry,cardiac enzymes were negative,UDS showed opiates. While on admission, Nursing staff reports that overnight patient have two episodes of bradycardia. Patient's heart rate was noted to be in the 30's. Nursing staff reports that patient was asymptomatic during these episodes. The next morning he was in sinus rhythm with heart rates in the 70-80's. After reviewing rhythm strips, it appeared to be a 2nd degree heart block. Cardiology saw in consultation, Echo showed ejection fraction of 55% structurally normal valves normal RV function mild TR no effusion.They adjusted his bp meds, discontinued metoprolol. Patient developed a headache and neck pain.Blood cultures were negative MRI of brain showed areas of white matter T2 signal hyperintensity in both cerebral hemispheres mostly in the periventricular areas and also near the superior basal ganglia bilaterally.MRI cervical spine showed mild spondylitic change. CSF analysis showed colorless and clear fluid with negative cultures. these resolved with pain meds.He received a dose of IM penicillin in the ER for his strep pharyngitis and was continued on amoxicillin.His renal status improved with IVf.His symptoms improved and this am, he is ready to be dcd.His TSH was low at 0.077 with a normal T4 levels. - Time spent with patient Time with patient DS: Greater than 30 minutes Diagnosis - Discharge Diagnosis (1) Chest pain Status: Acute (2) Strep throat Status: Acute (3) HTN (hypertension) Status: Chronic (4) Acute renal insufficiency Status: Acute (5) Headache Status: Acute Discharge Plan - Discharge Data Disposition: Disch To Home/Self Care Condition at Discharge: Stable Discharge Diet: heart healthy Activity: resume usual activities as tolerated - Discharge Medications New Acetaminophen Tab [Tylenol Tab] 325 mg PO Q4H PRN #0 tablet PRN Reason: fever, headache/body aches Amoxicillin Cap/Tab 500 mg PO Q12HR #10 capsule HYDROcodone/ACETAMIN 5-325 [[place] 5-325] 1 tablet PO Q4H PRN #14 tablet PRN Reason: Pain Mild (1-3) Continue Lisinopril/Hctz 20-25 [Prinzide 20-25] 1 tablet PO DAILY #30 tablet Aspirin EC Tab 81 mg PO DAILY Discontinued Metoprolol Tartrate Tab [Lopressor Tab] 100 mg PO BID #60 tablet - Follow Up or Referral - Forms/Instructions Additional Discharge Instructions: follow with PCP in 1week, cardiology as scheduled Exam - Constitutional Vitals: Period Temp Pulse Resp BP Sys/[place] Pulse Ox Last 24 Hr 98 F-99.5 F 59-68 16-20 95-115/62-74 96-98 General appearance: no acute distress - Head Head exam: Present: normal inspection - Respiratory Respiratory exam: Present: clear to auscultation bilaterally - Cardiovascular Cardiovascular exam: Present: regular rate and rhythm - GI/Abdominal GI/Abdominal exam: Present: normal bowel sounds - Extremities Exam Extremities exam: Present: normal inspection Discharge Results Procedures and tests throughout hospitalization: Pending Orders 06/06/16 19:04 Blood Culture Routine 06/07/16 13:46 Meningitis Ags w/CSF Cult/Smea Routine Toxoplasma gondi PCR CSF Routine Labs on day of discharge: Labs from last 24 hours 06/09/16 06/09/16 04:57 04:57 WBC 4.2 D RBC 4.50 Hgb 14.0 Hct 40.2 L MCV 89.3 MCH 31 MCHC 34.8 RDW 12.7 Plt Count 159 MPV 10.2 Neut % (Auto) 59.9 Lymph % (Auto) 29.6 [place] % (Auto) 10.1 Eos % (Auto) 0.0 Baso % (Auto) 0.2 Neut # (Auto) 2.5 Lymph # (Auto) 1.2 L [place] # (Auto) 0.4 Eos # (Auto) 0.0 Baso # (Auto) 0.0 Immature Gran % 0.2 Nucleated RBC % 0.0 Immature Gran # 0.01 Nucleated RBCs # 0.00 Sodium 138 Potassium 3.6 Chloride 99 Carbon Dioxide 27 Anion Gap 15.6 H BUN 17 Creatinine 1.20 GFR Calculation 82 BUN/Creatinine Ratio 14.00 Glucose 95 Calculated Osmolality 276.7 Calcium 8.7 Preliminary micro results at discharge 06/07/16 13:46 CSF Culture - Preliminary Cerebral Spinal Fluid No growth at 24 hours 06/06/16 19:04 Blood Culture - Preliminary Blood No growth at 1 day 06/06/16 19:04 Blood Culture - Preliminary Blood No growth at 1 day DS: Provider Date of admission: 06/06/16 16:19 Primary care physician: . No PCP Attending physician on admission: Lila Preston MD Consults: 06/06/16 18:11 Consult to Pharmacy [CONS] Routine Reason for Pharmacy Consult: Adjust Meds Renal Funct Discharging clinician: Lila Preston MD
--- NOTE | 2016-06-09 10:45 | Cardiology Progress Note ---
Assessment and Plan (1) Atypical chest pain Status: Acute Current Visit: Yes (2) Fever Status: Acute Current Visit: Yes (3) HTN (hypertension) Status: Chronic Current Visit: Yes (4) Medical non-compliance Status: Chronic Current Visit: Yes (5) Strep pharyngitis Status: Acute Current Visit: Yes (6) 2Nd degree AV block Status: Acute Current Visit: Yes (7) Headache Status: Acute Current Visit: Yes Cardiology - PN: Subj Interval history: Cardiology note No headache. Walking in the hallway. Blood pressure 114/78 in the left arm by me. Telemetry shows steady sinus rhythm. Clear chest. Regular rhythm. Plan Agree with discharge. Patient encouraged to take all BP medications daily and not to miss doses. Exam (Progress Note) - Constitutional Vitals: Period Temp Pulse Resp BP Sys/[place] Pulse Ox Last 24 Hr 98 F-99.5 F 59-68 16-20 95-115/62-74 96-98 Result/EKG - Labs CBC & BMP: 06/09/16 04:57 06/09/16 04:57 Labs: Laboratory Results - last 24 hr 06/09/16 06/09/16 04:57 04:57 WBC 4.2 D RBC 4.50 Hgb 14.0 Hct 40.2 L MCV 89.3 MCH 31 MCHC 34.8 RDW 12.7 Plt Count 159 MPV 10.2 Neut % (Auto) 59.9 Lymph % (Auto) 29.6 [place] % (Auto) 10.1 Eos % (Auto) 0.0 Baso % (Auto) 0.2 Neut # (Auto) 2.5 Lymph # (Auto) 1.2 L [place] # (Auto) 0.4 Eos # (Auto) 0.0 Baso # (Auto) 0.0 Immature Gran % 0.2 Nucleated RBC % 0.0 Immature Gran # 0.01 Nucleated RBCs # 0.00 Sodium 138 Potassium 3.6 Chloride 99 Carbon Dioxide 27 Anion Gap 15.6 H BUN 17 Creatinine 1.20 GFR Calculation 82 BUN/Creatinine Ratio 14.00 Glucose 95 Calculated Osmolality 276.7 Calcium 8.7 Specialty Discharge - Follow Up or Referrals
== END 2016-06-09 10:50 | disposition home or self-care (01) | DRG 313 ==
LOC: N.ED 14:29 → N.EDINP 16:19 → N.TELEN 17:33
PROVIDERS: ADMIT Internal Medicine; ATTEND Internal Medicine